=== PATIENT | male | born 1935 | race Caucasian/White ===

== ENCOUNTER 2016-05-25 05:32 | Day surgery (SDC) | payer MEDICARE, MEDICAID ==
[~2016-05-25 05:32] MED LIST: ACETAMINOPHEN; ACETAMINOPHEN325 M2 PO; AKWA TEARS OP; ALBUTEROL2.5 MG/0.1 NEB; ALBUTEROL2.5 MG/0.1 PO; ANTI-DIARRHEA2 MG PO; ARTIFICIAL TEAR15 M8 EACH EYE; ASMANEX110 MC1 INH; ATROVENT HFA12.9 GM IH; AUGMENTIN ES S125 M1 GT; BACITRACIN-POL3.5 GM; BACITRACIN-POL3.5 GM OP; BROVANA15 MCG/2 M IH; CALCIUM 600 W/V1 TAB; CLARITIN10 M6 PO; CLARITIN10 M8 PO; CLARITIN10 MG PO; COUMADIN2 M1 PO; COUMADIN3 M1 PO; COUMADIN3 MG PO; CVS FISH OIL; DEBROX15 M1 OT; ELIXOPHYLL80 MG/15 M GT; ERYTHROMYCIN; FAST RELIEF LAX10 MG RC; FLEET ENEMA118 ML RC; IMODIUM GT; IPRAT-ALBUT 0.5-3 ML INH; IPRATROPIU0.2 MG/1 M IH; ISOPTO TEARS15 M1 OP; MILK OF MA400 MG/5 M GT; MILK OF MAGNESIA PO; MIRALAX119 G1 PO; MIRALAX17 GM GT; MUCINEX600 MG GT; NYSTATIN ORAL S60 M1 MT; OYSTER SHELL C500 M2 PO; PLAVIX75 M1 PO; POLYCIN EYE OI3.5 GM LEFT EYE; PREDNISONE10 MG; PREDNISONE5 M1 PO; PRILOSEC20 M1 PO; PRILOSEC40 MG GT; PROAIR HFA8.5 GM INH; PROCTOZONE-HC30 G2 PR; PROTONIX40 M2 PO; PROVENTIL0.83 MG/ML IH; PULMICORT0.5 MG/2 M IH; REFRESH LACRI-3.5 GM LEFT EYE; REFRESH PLUS OP; REGULOID POWDE369 GM PO; ROBINUL1 MG GT; SAW PALMETTO 1160 MG; SPIRIVA18 MC1 INH; SYMBICORT 160-1 PUFF INH; THEO-24300 MG; THEOPHYLLINE PO; TYLENOL160 MG/51 NG; ULTRAM50 M1 PO; UROXATRAL10 MG; VENTOLIN HFA18 G2 PO; VITAMIN D1000 UNI2 PO; ZOCOR20 M1 PO; ZOCOR20 MG GT; ZOFRAN4 M2 PO; [UNRECOGNIZED DRUG - CODE]; [UNRECOGNIZED DRUG - OTHER]
[2016-05-25 06:19] LABS: BASO % 0.1 % (0-2); EOS % 0.3 % (0-7); HCT-HEMATOCRIT 45.2 % (36.0-53.5); HGB-HEMOGLOBIN 14.8 gm/dl (13.5-17.0); IMMATURE GRANULOCYTES ABSOLUTE 0.04 tho/cmm (0-0.03); IMMATURE GRANULOCYTES PERCENT 0.3 % (0-0.3); LYMPH % 11.4 % (20-45); LYMPH ABSOLUTE COUNT 1.4 tho/cmm (0.8-4.5); MCH (MEAN CORPUSCULAR HGB) 29.1 pg (28.0-32.0); MCHC MEAN CORPUSCULAR HGB CONC 32.7 % (32.0-36.0); MEAN PLATELET VOLUME 9.6 cmc (9.4-12.4); MONO % 5.3 % (0-12); MONOCYTE ABSOLUTE COUNT 0.7 tho/cmm (0.0-1.2); NEUTROPHIL ABSOLUTE COUNT 10.2 tho/cmm (1.6-8.0); NEUTROPHIL-AUTOMATED 10.2 tho/cmm (1.6-8.0); NEUTROPHILS % 82.6 % (40-80); PLATELET COUNT 232 tho/cmm (150-450); RED BLOOD COUNT 5.08 mil/cmm (4.40-5.70); RED CELL DISTRIBUTION WIDTH 17.1 % (12.4-16.4); WHITE BLOOD COUNT 12.4 tho/cmm (4.0-10.0)
== END 2016-05-25 08:57 ==
LOC: ENDOS 05:32 → SHSA 05:42 → ENDOS 07:45
PROVIDERS: Anesthesiology
PROC: 0W3P8ZZ Control Bleeding in Gastrointestinal Tract, Via Natural or Artificial Opening Endoscopic (ICD-10-PCS; principal; 2016-05-25)
DX: K31.6 Fistula of stomach and duodenum (principal); J45.909 Unspecified asthma, uncomplicated; J44.9 Chronic obstructive pulmonary disease, unspecified; K21.9 Gastro-esophageal reflux disease without esophagitis; Z79.02 Long term (current) use of antithrombotics/antiplatelets; Z79.52 Long term (current) use of systemic steroids; Z79.899 Other long term (current) drug therapy; Z87.891 Personal history of nicotine dependence; Z86.73 Personal history of transient ischemic attack (TIA), and cerebral infarction without residual deficits; Z90.89 Acquired absence of other organs; Z98.890 Other specified postprocedural states